=== PATIENT | male | born 1990 | race Caucasian/White ===

== ENCOUNTER 2025-06-17 06:24 | Emergency (ER) | payer OTHER, SELFPAY ==
[2025-06-17 06:45] VITALS: BP 157/99
--- NOTE | 2025-06-17 07:24 | ED.GENMED ---
History of Present Illness
<Jammie Thomson CLIN ASST - Last Filed: 06/17/25 16:31>
General
Chief Complaint: Abdominal Symptoms
Source: patient
Exam Limitations: none
Time Seen by Provider: 06/17/25 07:06
Nursing documentation reviewed up to this point in time: agreed with
History of Present Illness
History of Present Illness:
35 yo male w h/o HTN, GI problems, presenting with severe abdominal pain primarily located in the epigastric region. The pain began acutely at approximately 5 p.m. yesterday, described as stinging and stabbing. The patient noted similar, though less
severe, episodes over the past five months, with a particularly intense episode last week that resolved in a couple of hours. The current episode has persisted without relief, with the pain intensifying from mild to severe since its onset. The pain
often worsens with the intake of fatty foods.
Associated symptoms include nausea, vomiting, and diarrhea. The diarrhea was described as soft stool with mucus and no blood. The patient denies any chest pain or shortness of breath, noting only that the pain radiates through to the back, forming a
pattern likened to a 'T' across his back, just above the kidneys. He reports incomplete relief from [id number] remedies taken in past episodes.
Denies fever.
Colonoscopy two years ago for diagnostic evaluation of abdominal issues, with findings of intestinal scarring but not Crohns disease
Past History
<Jammie Thomson, CLIN ASST - Last Filed: 06/17/25 16:31>
Past History
ED Past Medical History: GERD and Other (Allergies to bees and cephalosporins)
ED Past Surgical History: Other (Hydrocele, adenoids)
Social History
Tobacco: Non-smoker
Alcohol: Occasional
Personal: Single
Living: with family
Employment: Employed
Review of Systems
<Jammie Thomson, CLIN ASST - Last Filed: 06/17/25 16:31>
Review of Systems
Allergies reviewed?: Yes
All Other Systems: ROS reviewed and negative except as documented in HPI and ROS
Constitutional: Denies fever
Respiratory: Denies trouble breathing
Cardiac: Denies chest pain
ABD/GI: Reports abdominal pain, nausea and vomiting; Denies diarrhea, bloody stools or black stools
: Reports no symptoms
Musculoskeletal: Reports no symptoms
Skin: Reports no symptoms
Neurological: Reports no symptoms
Phy Exam
<Jammie Thomson CLIN ASST - Last Filed: 06/17/25 16:31>
Physical Exam
Physical Exam:
General: Alert, no acute distress despite discomfort.
Skin: Warm, dry.
Eyes, Ears, Nose, Mouth and Throat: Oral mucosa moist.
Cardiovascular: Normal peripheral perfusion, no edema.
Respiratory: Respirations are non-labored.
Gastrointestinal: Abdomen is non distended, tender epigastric area
Back: Normal range of motion, normal alignment.
Musculoskeletal: Normal range of motion, normal strength.
Neurological: Alert and oriented to person, place, time, and situation, no focal neurological deficits observed.
Psychiatric: Cooperative, appropriate mood & affect.
Course
<Jammie Thomson, CLIN ASST - Last Filed: 06/17/25 16:31>
Orders/Labs/Results
Orders:
Orders
06/17/25 07:22
IV Insert/Care/Rem.- Treatment PRN
0.9% Sodium Chloride 1000 ml [Nss] 1,000 ml IV BOLUS
HYDROmorphone [Dilaudid] 1 mg IV NOW STA
US Abdomen Complete/Upper Urgent
Comment:
Reason For Exam: mid epigastric pain, n/v
06/17/25 07:38
Complete Blood Count/With Diff Urgent
Comprehensive Metabolic Panel Urgent
Lipase Urgent
06/17/25 07:41
Ondansetron Injectable [Zofran] 4 mg .ROUTE .STK-MED ONE
Ondansetron Injectable [Zofran] 4 mg IV NOW STA
06/17/25 08:55
Pantoprazole [Protonix IV] 80 mg IV NOW STA
06/17/25 09:23
Mag Hydrox/Al Hydrox/Simeth [Maalox] 30 ml Phenobarb/Hyoscy/Atropine/Scop [] 10 ml PO NOW
06/17/25 09:30
Mag Hydrox/Al Hydrox/Simeth [Maalox] 30 ml .ROUTE .STK-MED ONE
Phenobarb/Hyoscy/Atropine/Scop [] 10 ml .ROUTE .STK-MED ONE
Abnormal Lab Results
06/17/25
07:38
WBC 14.8 H 10^3/uL
(4.8-10.8)
Abs Immat Gran (auto) 0.1 H 10^3/uL
(0-0.05)
Absolute Neuts (auto) 13.1 H 10^3/uL
(1.4-6.5)
Absolute Lymphs (auto) 0.9 L 10^3/uL
(1.2-3.4)
Absolute Monos (auto) 0.7 H 10^3/uL
(0.1-0.6)
Neutrophils % 88.4 H %
(42.2-75.2)
Lymphocytes % 6.0 L %
(20.5-51.1)
Glucose 131 H mg/dl
(70-99)
06/17/25 07:38
06/17/25 07:38
Vital Signs
Initial and Last Documented VS:
Initial Vital Signs
Temp Pulse Resp BP Pulse Ox
98.3 F 102 20 157/99 100
06/17/25 06:45 06/17/25 06:45 06/17/25 06:45 06/17/25 06:45 06/17/25 06:45
Last Documented Vital Signs
Temp Pulse Resp BP Pulse Ox
98.3 F 100 18 135/82 97
06/17/25 06:45 06/17/25 09:37 06/17/25 09:37 06/17/25 09:37 06/17/25 09:37
X Ray Technologist consulted with Physician
X Ray Technologist consulted with physician?: Yes (Hugo)
<Chirag Arias, DO - Last Filed: 06/17/25 13:09>
Orders/Labs/Results
Orders:
Orders
06/17/25 07:22
IV Insert/Care/Rem.- Treatment PRN
0.9% Sodium Chloride 1000 ml [Nss] 1,000 ml IV BOLUS
HYDROmorphone [Dilaudid] 1 mg IV NOW STA
US Abdomen Complete/Upper Urgent
Comment:
Reason For Exam: mid epigastric pain, n/v
06/17/25 07:38
Complete Blood Count/With Diff Urgent
Comprehensive Metabolic Panel Urgent
Lipase Urgent
06/17/25 07:41
Ondansetron Injectable [Zofran] 4 mg .ROUTE .STK-MED ONE
Ondansetron Injectable [Zofran] 4 mg IV NOW STA
06/17/25 08:55
Pantoprazole [Protonix IV] 80 mg IV NOW STA
06/17/25 09:23
Mag Hydrox/Al Hydrox/Simeth [Maalox] 30 ml Phenobarb/Hyoscy/Atropine/Scop [] 10 ml PO NOW
06/17/25 09:30
Mag Hydrox/Al Hydrox/Simeth [Maalox] 30 ml .ROUTE .STK-MED ONE
Phenobarb/Hyoscy/Atropine/Scop [] 10 ml .ROUTE .STK-MED ONE
Abnormal Lab Results
06/17/25
07:38
WBC 14.8 H 10^3/uL
(4.8-10.8)
Abs Immat Gran (auto) 0.1 H 10^3/uL
(0-0.05)
Absolute Neuts (auto) 13.1 H 10^3/uL
(1.4-6.5)
Absolute Lymphs (auto) 0.9 L 10^3/uL
(1.2-3.4)
Absolute Monos (auto) 0.7 H 10^3/uL
(0.1-0.6)
Neutrophils % 88.4 H %
(42.2-75.2)
Lymphocytes % 6.0 L %
(20.5-51.1)
Glucose 131 H mg/dl
(70-99)
06/17/25 07:38
06/17/25 07:38
Vital Signs
Initial and Last Documented VS:
Initial Vital Signs
Temp Pulse Resp BP Pulse Ox
98.3 F 102 20 157/99 100
06/17/25 06:45 06/17/25 06:45 06/17/25 06:45 06/17/25 06:45 06/17/25 06:45
Last Documented Vital Signs
Temp Pulse Resp BP Pulse Ox
98.3 F 100 18 135/82 97
06/17/25 06:45 06/17/25 09:37 06/17/25 09:37 06/17/25 09:37 06/17/25 09:37
<Jammie Thomson CLIN ASST - Last Filed: 06/17/25 16:31>
MDM/Problems Addressed
Differential Diagnosis Includes:
The Differential Diagnosis includes, in no particular order and is not limited to:
- Gallbladder disease (Cholelithiasis or Cholecystitis)
- Peptic ulcer disease
- Pancreatitis
- Gastroesophageal reflux disease (GERD) exacerbation
- Intestinal obstruction
- Biliary colic
- Hepatitis
- Gastritis
- Irritable bowel syndrome (IBS)
- Mesenteric ischemia
MDM/Problems Addressed:
35 yo male w h/o HTN, GI problems, presenting with severe abdominal pain primarily located in the epigastric region. The pain began acutely at approximately 5 p.m. yesterday, described as stinging and stabbing. The patient noted similar, though less
severe, episodes over the past five months, with a particularly intense episode last week that resolved in a couple of hours. The current episode has persisted without relief, with the pain intensifying from mild to severe since its onset. The pain
often worsens with the intake of fatty foods.
Associated symptoms include nausea, vomiting, and diarrhea. The diarrhea was described as soft stool with mucus and no blood. The patient denies any chest pain or shortness of breath, noting only that the pain radiates through to the back, forming a
pattern likened to a 'T' across his back, just above the kidneys. He reports incomplete relief from [id number] remedies taken in past episodes.
Denies fever.
Colonoscopy two years ago for diagnostic evaluation of abdominal issues, with findings of intestinal scarring but not Crohns disease
Plan:
- Conduct an ultrasound of the upper abdomen to evaluate the gallbladder.
- Perform basic laboratory blood work.
- Administer intravenous fluids.
- Provide antiemetic and analgesic medication for nausea and pain relief.
8:30 AM:
CBC: WBC 14.8 With a shift
CMP: Normal
Lipase normal
Abd US: IMPRESSION:
Cholelithiasis. No evidence for gallbladder wall thickening or pericholecystic edema. No evidence for biliary ductal dilation.
Upper abdominal IVC is not well-visualized.
Enlargement of the left renal pelvis, without definite calyceal dilation, most likely an extrarenal pelvis.
Case discussed with Dr. Arias who examined patient
10:25 a.m.
After GI cocktail and IV Protonix, pt feeling a little better, sharp pains are gone area still feels 'hot' Comfortable going home and f/u with GI Dr. Ford who he has seen in past
Referral to General Surgery give if symptoms persist.
<Jammie Thomson, CLIN ASST - Last Filed: 06/17/25 16:31>
*Pulse Oximetry
SaO2: 100
Oxygen Mode of Delivery: Room air
Patient hypoxic: not evaluated
*Critical Care Note
Total Time (30-74mins, 75-104mins- exclusive of procedures): Not Applicable
ED Attending Note
<Jammie Thomson CLIN ASST - Last Filed: 06/17/25 16:31>
-
Portions of this chart may have been created with voice recognition software.� Occasional wrong word or��sound alike� substitutions may have occurred due to the inherent limitations of voice recognition software.
<Chirag Arias, - Last Filed: 06/17/25 13:09>
ED Attending Note
Patient seen and examined by attending physician: Yes
ED Attending Note:
I have reviewed and agree with history and treatment plan by SESAR Pate. My exam revealed soft nontender abdomen. Patient in no distress. Doubt cholecystitis. Will have pt avoid fatty foods. Follow up with general surgery. Return
precautions given.
Discharge Plan
Departure
Patient Disposition: Home (Routine Discharge)
Date of Disposition: 06/17/25
Time of Disposition: 10:28
Patient with high blood pressure during this ER visit?: No
Condition: Good
Discharge Problem:
Acute epigastric pain
Instructions: Acid reflux and GERD in adults, Abdominal pain in adults - Discharge instructions, Amado diet
Prescriptions:
New
pantoprazole [Protonix] 40 mg tablet,delayed release (DR/EC)
40 mg PO DAILY Qty: 30 0RF
No Action
prednisone 10 MG tablet
10 mg PO .TAPER Qty: 30 0RF
Rx Instructions:
Take [id number], [id number], [id number], [id number].
Referrals:
Von Rivas MD [Active, ColoRectal] - Next open appointment
Timi Ford MD [Active, Gastroenterology]
Reno Nickerson MD [Active, Surgical] - Next open appointment
UNKNOWN - PT DOES,NOT KNOW [Unknown Provider]
Activity Restrictions/Additional Instructions:
As we discussed stop the Prilosec and start the Protonix tomorrow (you were given an IV dose today).
I sent a prescription to your pharmacy for the Protonix
Follow a Amado diet
Let Dr. Ford know if it helps.
Call GI office tomorrow morning and make next available appt.
I have provided you with the name of a General Surgeon you can make appointment with if your symptoms persist.
Interventions
Interventions:
*Risk Screen - Suicide Last Done: 06/17/25 06:45
*General Assessment Last Done: 06/17/25 06:45
*Neglect/Abuse Screening Last Done: 06/17/25 06:45
*ED- Fall Risk Assessment Last Done: 06/17/25 06:45
*ED COVID-19 Vaccine History Last Done: 06/17/25 06:45
*Nursing Disposition Last Done: 06/17/25 10:53
NS-Dwoanj-Mwxokafrmo Assessment Last Done: 06/17/25 09:39
Discharge Date and Time
Discharge Date/Time: 06/17/25 10:55
Print Language: ZAMBIAN
[2025-06-17 07:28] VITALS: BMI 33.4
[2025-06-17] MEDS: NSS 1000 IV (07:37)
[2025-06-17] MEDS: DILAUDID 1 MG IV (07:44)
[2025-06-17] MEDS: ZOFRAN 4 MG IV (07:44)
[2025-06-17 07:47] LABS: Hematocrit 45.0 % (39.0-52.0); Hemoglobin 15.3 g/dL (13.0-18.0); Mean Corp Hgb Conc. 34.0 g/dL (33.0-37.0); Mean Corpuscular Volume 85.6 fL (80.0-94.0); Nucleated Red Blood Cells % 0 % (-); Platelet Count 329 10^3/uL (130-400); Red Cell Dist. Width 12.6 % (11.5-14.5)
[2025-06-17 08:10] LABS: ALT (SGPT) 23 U/L (0-50); AST (SGOT) 19 U/L (17-59); Albumin 4.6 g/dl (3.5-5.0); Alkaline Phosphatase 63 U/L (38-126); Blood Urea Nitrogen 11 mg/dl (9-20); Calcium 10.0 mg/dl (8.4-10.2); Carbon Dioxide 26 mmol/L (22-30); Chloride 103 mmol/L (98-107); Estimated Creatinine Clearance > 125 ml/min; Glucose 131 mg/dl (70-99); Lipase 24 U/L (23-300); Potassium 4.4 mmol/L (3.5-5.1); Sodium 138 mmol/L (135-145); Total Protein 7.7 g/dl (6.3-8.2); eGFR > 60.00
[2025-06-17] MEDS: MAALOX 40 PO (09:31)
[2025-06-17] MEDS: PROTONIX IV 80 MG IV (09:31)
[2025-06-17 09:37] VITALS: BP 135/82
== END 2025-06-17 10:55 | disposition home or self-care (01) ==
LOC: EMR 06:24
PROVIDERS: Registered Nurse; EMERGENCY PHYSICIAN Emergency Medicine; FAMILY PHYSICIAN Family Medicine
DX: R10.13 Epigastric pain (principal); R11.2 Nausea with vomiting, unspecified; R19.7 Diarrhea, unspecified; M54.9 Dorsalgia, unspecified; K80.20 Calculus of gallbladder without cholecystitis without obstruction; I10 Essential (primary) hypertension; K21.9 Gastro-esophageal reflux disease without esophagitis; Z91.030 Bee allergy status; Z88.3 Allergy status to other anti-infective agents; Z88.1 Allergy status to other antibiotic agents; Z91.040 Latex allergy status; Z91.011 Allergy to milk products; Z91.048 Other nonmedicinal substance allergy status
CPT/HCPCS: 99284; 96374; 96375 ×2; 76700; 80053; 83690; 85025